=== PATIENT | female | born 1940 | race Caucasian/White ===

== ENCOUNTER → 2018-02-12 | Outpatient (CLI) | payer OTHER ==
[~2018-02-12] MED LIST: NOHOMEMEDICATIONS; RECLAST 55 MG/100 M IV
== END ==
LOC: M.RAD 13:26
DX: Z12.31 Encounter for screening mammogram for malignant neoplasm of breast (principal)

== ENCOUNTER 2018-08-02 17:34 | Emergency (ER) | payer OTHER ==
[~2018-08-02] VITALS: Ht 160 cm; Wt 51.7 kg
[2018-08-02] MEDS ORDERED: ZANAFLEX4 MG PO (18:42)
[2018-08-02 19:29] VITALS: BP 149/71
== END 2018-08-02 19:30 | disposition home or self-care (01) ==
LOC: M.ERS 17:34
DX: S29.012A Strain of muscle and tendon of back wall of thorax, initial encounter (principal); V89.2XXA Person injured in unspecified motor-vehicle accident, traffic, initial encounter; Y93.89 Activity, other specified; Y92.89 Other specified places as the place of occurrence of the external cause; Y99.8 Other external cause status

== ENCOUNTER → 2018-08-19 | Outpatient (CLI) | payer OTHER ==
[~2018-08-19] MED LIST changes: +ZANAFLEX4 MG PO
== END ==
LOC: M.ULTRA 10:30
DX: N64.4 Mastodynia (principal)

== ENCOUNTER → 2019-04-12 | Outpatient (CLI) | payer OTHER | LOC: M.RAD 15:21 | DX: Z12.31 Encounter for screening mammogram for malignant neoplasm of breast (principal); M81.0 Age-related osteoporosis without current pathological fracture; M85.89 Other specified disorders of bone density and structure, multiple sites ==

== ENCOUNTER → 2020-08-31 | Outpatient (CLI) | payer MEDICARE | LOC: M.RAD 13:00 | PROVIDERS: ATTEND Family Medicine | DX: Z12.31 Encounter for screening mammogram for malignant neoplasm of breast (principal) ==